=== PATIENT | female | born 1985 | race Caucasian/White ===

== ENCOUNTER 2023-12-01 00:37 | Emergency (ER) | payer MEDICAID, SELFPAY ==
[2023-12-01 01:23] VITALS: BP 150/84; PULSE 72; RESP 20; TEMP 36.4; O2SAT 100; BMI 21.9
[2023-12-01 01:59] LABS: MANUAL DIFF FLAG NO
[2023-12-01 02:01] LABS: Basophils Percent Auto 0.7 % (0-2); Eosinophils Absolute Auto 0.2 X10*3/uL (0.0-0.4); Eosinophils Percent Auto 4.4 % (0-4); Hematocrit 34.9 % (37.0-47.0); Hemoglobin 11.1 g/dl (12.0-16.0); Imm Gran Abs Auto 0.01 X10*3/uL (0.00-0.03); Imm Gran Pct Auto 0.2 % (0.0-0.4); Lymphocytes Absolute Auto 1.9 X10*3/uL (1.2-4.9); Lymphocytes Percent Auto 40.9 % (20-40); Mean Corpuscular HGB Conc 31.8 g/dl (31.0-35.0); Mean Corpuscular Hemoglobin 27.5 pg (27.0-33.0); Mean Corpuscular Volume 86.6 fL (80.0-98.0); Mean Platelet Volume 9.1 fL (9.4-12.3); Monocytes Absolute Auto 0.4 X10*3/uL (0.1-1.2); Monocytes Percent Auto 9.6 % (2-11); Neutrophils Percent Auto 44.2 % (45-73); Platelet Count 272 X10*3/uL (160-400); Red Blood Count 4.03 X10*6/uL (4.20-5.50); Red Cell Distribution Width 13.2 % (11.0-16.0); White Blood Count 4.6 X10*3/uL (4.8-10.8)
[2023-12-01 02:14] LABS: Alanine Aminotransferase 9 U/L (0-31); Albumin Level 4.2 g/dL (3.5-5.0); Alkaline Phosphatase 43 U/L (39-117); Anion Gap 10 (12-20); Aspartate Amino Transferase 15 U/L (5-31); Bilirubin Total 0.7 mg/dL (0.0-1.0); Blood Urea Nitrogen 16 mg/dL (9-16); Carbon Dioxide 27 mmol/L (22-29); Chloride 110 mmol/L (96-108); Creatinine Clr Calc Pharmacy 69.1; Estimated Glomerular Filt Rate > 60; Glucose Random 121 mg/dL (60-115); Potassium 3.5 mmol/L (3.3-5.1); Sodium 143 mmol/L (135-145)
== END 2023-12-01 05:00 | disposition left against medical advice (07) ==
PROVIDERS: Emergency Provider Emergency Medicine
DX: M79.89 Other specified soft tissue disorders (principal); R20.0 Anesthesia of skin; Z53.21 Procedure and treatment not carried out due to patient leaving prior to being seen by health care provider
CPT/HCPCS: 36415; 80053; 85025; 99281; 99283

== ENCOUNTER 2024-07-30 21:19 | Emergency (ER) | payer OTHER, SELFPAY ==
--- NOTE | ~2024-07-30 | XR_ITS ---
CLINICAL HISTORY: constipation 1 view abdomen Comparison: None Findings: Normal bowel gas pattern. No abnormal calcifications. No pneumoperitoneum or pneumatosis. No acute fractures. Impression: 1. Moderate stool. This document has been electronically signed by: Avis Banks MD on 07/30/2024 22:18:09
[2024-07-30 21:21] VITALS: BP 155/88; PULSE 95; RESP 16; TEMP 36.9; O2SAT 100; BMI 21.0
--- NOTE | 2024-07-30 23:30 | ED_ITS ---
HPI - General Adult General Chief complaint: General Medical Stated complaint: Constipation Time Seen by Provider: 07/30/24 22:55 Source: patient Mode of arrival: ambulatory Limitations: no limitations History of Present Illness ED Provider: Medhat Allen [facility] narrative: 38 yold female presents to the ED for constipation for one day. Patient denies any abdominal pain, nausea, vomiting, flank pain, fever, chills, or any genitourinary symptoms. Related Data Previous Rx's ?Medication ?Instructions ?Recorded polyethylene glycol 3350 17 17 g PO DAILY 2 days #34 grams 07/30/24 gram/dose oral powder Allergies Allergy/AdvReac Type Severity Reaction Status Date / Time No Known Allergies Allergy Verified 07/30/24 21:22 Review of Systems Review of Systems: constipation Yes all other systems are reviewed and are negative [facility] Social History Social History Advance Directives: No Advance Directives Information Provided: No Do you have a plan to hurt others: No Plan Physical Exam ED Vital Signs: Vital Signs - 24 hr 07/30/24 21:21 07/31/24 00:06 Temperature 98.4 F 98.4 F Pulse Rate 95 95 Respiratory Rate 16 16 Blood Pressure 155/88 H 155/88 H Pulse Oximetry 100 100 Oxygen Delivery Method Room Air Room Air BMI result Body Mass Index 21.0 Const General: cooperative, healthy appearing, comfortable, no acute distress, well developed, alert, awake and Physically active Orientation/consciousness: patient oriented x3 HENMT Head: Yes normal to inspection, Yes No palpable skull fracture present, Yes normocephalic, Yes atraumatic and No abrasion Eyes General: appearance normal, both eyes and all related structures Neck Neck: Yes normal visual inspection, Yes full ROM, Yes no lymphadenopathy, Yes no meningeal signs, Yes trachea midline, Yes supple, No anterior neck swelling and No tender Chest Chest palpation & inspection: normal inspection of the chest and normal palpation of entire chest wall Resp Effort & Inspection: normal respiratory effort and able to speak in complete sentences Auscultation: clear to auscultation bilaterally Cardio Jugular venous distension: no JVD Heart sounds: S1 normal heart sound present and S2 normal heart sound present GI Inspection: Yes normal to inspection Palpation (GI): Soft to palpation, not firm, nontender, no guarding and not rigid General: Yes no CVA tenderness Back/Spine/Pelvis Back: no CVA tenderness and No back tenderness Skin General skin exam: no rashes or lesions noted, elasticity normal and turgor normal Neuro General: patient oriented x3, gait normal, tone normal, moves all extremities, Normal light touch and pain sensation, no meningeal signs, no focal motor deficits, CN's II-XI intact bilaterally and normal sensation to monofilament Extrem General: Yes normal to inspection, Yes full ROM and Yes capillary refill normal Psych Appearance: grossly normal, well kempt and not disheveled Medications Administered Discontinued Medications Generic Name Dose Route Start Last Admin Trade Name Raj PRN Reason Stop Dose Admin Lactulose 30 gm 07/30/24 23:45 07/31/24 00:04 Lactulose 20 Gm/30 Ml Solution PO 07/30/24 23:46 30 gm ONCE ONE Administration Medical Decision Making Medical Decision Making MDM Narrative: 38-year-old female presents to ED for constipation for 1 day. Not suspecting small bowel obstruction. Abdomen benign soft and tender on exam. Patient will be given lactulose 1st dose in the ED and discharged with constipation medication. Patient explained worrisome signs informed to return to the ED immediately. Not suspecting small-bowel obstruction, appendicitis, cholecystitis, pancreatitis, colitis, UTI, urosepsis, kidney stones, or any other life-threatening abdominal etiology. Xray shows constipation Differential Diagnosis Differential Diagnoses: The differential diagnosis associated with the presentation includes (Constipation or bowel obstruction) Admission/Observation Consideration of admission/observation: Escalation of care including admission/observation considered Independent Interpretation I performed an independent interpretation of an: Plain X-Ray Radiology Impression Discussion of test interpretation with radiology: I have reviewed the radiologist's reading. Independent Historian Clinical information obtained from an independent historian. History obtained from or confirmed by: Other (patient) External Record Review External record reviewed: Other (prior visits) Prescription Management I considered prescription management with: Other (constipation) Discharge Plan Discharge Clinical Impression: Constipation Patient Disposition: Home, Self-Care Instructions: Constipation (ED) Additional Instructions: Recommend follow-up with your primary care provider. Return to the ED for any nausea, vomiting, fever, chills, severe abdominal pain, inability tolerate food, or any other concerning symptoms. CLINICAL HISTORY: constipation 1 view abdomen Comparison: None Findings: Normal bowel gas pattern. No abnormal calcifications. No pneumoperitoneum or pneumatosis. No acute fractures. Impression: 1. Moderate stool. This document has been electronically signed by: Avis Banks MD on 07/30/2024 22:18:09 Dictated By: Avis Banks MD Signed By: <Electronically signed by Avis Banks MD in [place]> 07/30/24 [id number] Prescriptions: New polyethylene glycol 3350 17 gram/dose powder 17 g PO DAILY 2 Days Qty: 34 0RF Stand Alone Forms: Work/School Release Interventions: ED Discharge Assessment Last Done: 07/31/24 00:06 Discharge Date/Time: 07/31/24 00:07 Print Language: Serbian
[2024-07-31] MEDS: Lactulose 20 GM/30 ML SOLUTION 30 GM PO (00:04)
[2024-07-31 00:06] VITALS: BP 155/88; PULSE 95; RESP 16; TEMP 36.9; O2SAT 100
== END 2024-07-31 00:07 | disposition home or self-care (01) ==
PROVIDERS: Emergency Provider Emergency Medicine
DX: K59.00 Constipation, unspecified (principal)
CPT/HCPCS: 74018; 99283